=== PATIENT | male | born 1965 | race Caucasian/White ===

== ENCOUNTER 2021-03-14 12:19 | Emergency (ER) | payer BC ==
[~2021-03-14] VITALS: Ht 172.7 cm; Wt 65.8 kg
[2021-03-14] MEDS ORDERED: NORFLEX100MG PO (16:23)
[2021-03-14] MEDS ORDERED: ZOFRAN8 MG PO (16:23)
[2021-03-14] MEDS ORDERED: KETO10TA2 PO (16:23)
== END 2021-03-14 16:33 | disposition home or self-care (01) ==
LOC: ER 12:19
DX: R51.9 Headache, unspecified (principal); F41.8 Other specified anxiety disorders